=== PATIENT | male | born 1960 | race Caucasian/White ===

== ENCOUNTER 2016-12-27 12:16 | Emergency (ER) | payer BC ==
[2016-12-27 12:31] VITALS: BP 149/88
[2016-12-27] MEDS ORDERED: cefTRIAXone 1 GM Vial IM ONE (12:53)
[2016-12-27] MEDS ORDERED: Dexamethasone 10 MG/ML SDV IM ONE (12:53)
--- NOTE | 2016-12-27 13:00 | EDM.PDOC ---
ED HPI GENERAL MEDICAL PROBLEM - General Chief Complaint: General Stated Complaint: CHEST CONJESTION Time Seen by Provider: 12/27/16 12:53 Source of Information: Reports: Patient History Limitations: Reports: No Limitations - History of Present Illness INITIAL COMMENTS - FREE TEXT/NARRATIVE: PT STATES HE DEVELOPED A SORE THROAT 4 DAYS AGO AND IS BECOMING WORSE. DENIES FEVER, SICK CONTACT, N/V/D, ABD PAIN, CP, OR SOB. Onset: Gradual Onset Date: 12/24/16 Duration: Day(s): Location: Reports: Other (THROAT) Quality: Reports: Ache, Burning Severity: Moderate Improves with: Reports: None Worsens with: Reports: Eating Associated Symptoms: Reports: No Other Symptoms Treatments FORENSIC INVESTIGATOR: Reports: NSAIDS, Other (see below) Other Treatments FORENSIC INVESTIGATOR: nyquil, asa, chloraseptic Throat Pain Score (Numeric/FACES): 5 - Related Data Allergies Allergy/AdvReac Type Severity Reaction Status Date / Time Penicillins Allergy Hives Verified 12/27/16 12:32 Tetanus Vaccines and Toxoid Allergy Hives Verified 12/27/16 12:32 Home Meds: Home Meds Azithromycin [Zithromax] 500 mg PO DAILY 3 Days #6 tablet 12/27/16 [Rx] Umeclidinium Brm/Vilanterol Tr [Anoro Ellipta 62.5-25 MCG] 1 puff IH DAILY 12/27 [History] Social & Family History - Tobacco Use Smoking Status *Q: Current Every Day Smoker Years of Tobacco use: 40 Packs/Tins Daily: 2 Second Hand Smoke Exposure: Yes - Caffeine Use Caffeine Use: Reports: Tea - Alcohol Use Days Per Week of Alcohol Use: 7 Number of Drinks Per Day: 2 Total Drinks Per Week: 14 - Recreational Drug Use Recreational Drug Use: No ED ROS GENERAL - Review of Systems Review Of Systems: ROS reveals no pertinent complaints other than HPI. Constitutional: Reports: No Symptoms HEENT: Reports: Throat Pain Respiratory: Reports: No Symptoms Cardiovascular: Reports: No Symptoms Endocrine: Reports: No Symptoms GI/Abdominal: Reports: No Symptoms : Reports: No Symptoms Musculoskeletal: Reports: No Symptoms Skin: Reports: No Symptoms Neurological: Reports: No Symptoms Psychiatric: Reports: No Symptoms Hematologic/Lymphatic: Reports: No Symptoms Immunologic: Reports: No Symptoms ED EXAM, GENERAL - Physical Exam Exam: See Below Exam Limited By: No Limitations General Appearance: Alert, WD/WN, No Apparent Distress Eye Exam: Bilateral Eye: Normal Inspection Ears: Normal External Exam, Normal Canal, Normal TMs Nose: Normal Inspection, Normal Mucosa, No Blood Throat/Mouth: Other (PHYARNGEAL ERYTHEMA WITH EXUDATES / NO PERITONSILAR ABSCESS , UVULA EDEMA OR DEVIATION) Head: Atraumatic, Normocephalic Neck: Lymphadenopathy (L), Lymphadenopathy (R) Respiratory/Chest: No Respiratory Distress, Lungs Clear, Normal Breath Sounds, No Accessory Muscle Use, Chest Non-Tender Cardiovascular: Regular Rate, Rhythm, No Murmur GI/Abdominal: Normal Bowel Sounds, Soft, Non-Tender Extremities: Normal Inspection Neurological: Alert, Oriented, Normal Cognition Psychiatric: Normal Affect, Normal Mood Skin Exam: Warm, Dry, Intact, Normal Color, No Rash Lymphatic: Adenopathy (BILAT SUBMANDIBULAR) Course - Vital Signs Last Recorded V/S: Last Vital Signs Temp 99.6 F 12/27/16 12:27 Pulse 104 H 12/27/16 12:27 Resp 16 12/27/16 12:27 BP 149/88 H 12/27/16 12:27 Pulse Ox 98 12/27/16 12:27 - Orders/Labs/Meds Orders: Active Orders 24 hr Category Date Time Status Dexamethasone Med 12/27/16 12:53 Once 8 mg IM ONETIME ONE cefTRIAXone [Rocephin] Med 12/27/16 12:53 Once 1 gm IM ONETIME ONE Medication Orders Ceftriaxone Sodium (Rocephin) 1 gm IM ONETIME ONE Stop: 12/27/16 12:54 Meds: Medications Generic Name Dose Route Start Last Admin Trade Name Jay PRN Reason Stop Dose Admin Ceftriaxone Sodium 1 gm 12/27/16 12:53 Rocephin IM 12/27/16 12:54 ONETIME ONE - Re-Assessments/Exams Free Text/Narrative Re-Assessment/Exam: 12/27/16 12:59 PT AFEBRILE, NONTOXIC APPEARING, VSS, ROCEPHIN AND DECADRON GIVEN IM. ZITHRO RX Departure - Departure Time of Disposition: 13:14 Disposition: Home, Self-Care 01 Condition: Good Clinical Impression: Pharyngitis Qualifiers: Pharyngitis/tonsillitis etiology: unspecified etiology Qualified Code(s): J02.9 - Acute pharyngitis, unspecified - Discharge Information Instructions: Pharyngitis, [id number], Sore Throat, [id number] Referrals: PCP,Not In Area [Primary Care Provider] - Additional Instructions: FOLLOW UP WITH PCP IN 3-5 DAYS. RETURN TO ER SOONER IF SYMPTOMS CONTINUE - My Orders Last 24 Hours: My Active Orders 12/27/16 12:53 Dexamethasone 8 mg IM ONETIME ONE cefTRIAXone [Rocephin] 1 gm IM ONETIME ONE - Assessment/Plan Last 24 Hours: My Active Orders 12/27/16 12:53 Dexamethasone 8 mg IM ONETIME ONE cefTRIAXone [Rocephin] 1 gm IM ONETIME ONE Assessment:: EXUDATIVE PHARYNGITIS Plan: F/U WITH PCP
== END 2016-12-27 13:40 | disposition home or self-care (01) ==
LOC: KA.ED 12:16
DX: J02.9 Acute pharyngitis, unspecified (principal); F17.210 Nicotine dependence, cigarettes, uncomplicated; Z88.0 Allergy status to penicillin; Z88.8 Allergy status to other drugs, medicaments and biological substances
CPT/HCPCS: 96374; 96375; 99282; J0696; J1100